=== PATIENT | male | born 1950 | race American Indian/Alaskan Native ===

== ENCOUNTER 2022-06-07 11:24 | Emergency (ER) | payer OTHER ==
[2022-06-07 14:05] LABS: Hematocrit 35.1 % (35.5-45.6); Hemoglobin 10.8 gm/dl (11.8-15.2); Mean Corpuscular HGB Conc 31 % (32-34); Mean Corpuscular Volume 82 fl (84-94); Red Blood Count 4.26 M/mm3 (3.65-5.03)
[2022-06-07 14:07] LABS: Platelet Count 79 K/mm3 (140-440); Red Cell Distribution Width 21.6 % (13.2-15.2)
--- NOTE | 2022-06-07 14:10 | Ultrasound Report ---
ULTRASOUND SCROTUM INDICATION / CLINICAL INFORMATION: swelling. COMPARISON: None available. FINDINGS -- RIGHT: TESTIS: Size = 4.8 x 2.1 x 3.9 cm. - Appearance: No significant abnormality. - Cyst / Mass: None. - Color Doppler Flow: No significant abnormality. EPIDIDYMIS: No significant abnormality. HYDROCELE: None. VARICOCELE: None demonstrated. FINDINGS -- LEFT: TESTIS: Size = 3.7 x 2.0 x 4.3 cm. - Appearance: No significant abnormality. - Cyst / Mass: None. - Color Doppler Flow: No significant abnormality. EPIDIDYMIS: No significant abnormality. HYDROCELE: None. VARICOCELE: None demonstrated. ADDITIONAL FINDINGS: Marked scrotal soft tissue/skin edema/swelling. IMPRESSION: 1. No intratesticular mass or torsion. 2. Marked scrotal soft tissue/skin edema/swelling Signer Name: Farooq Roth DO Signed: 06/07/2022 2:05 PM Workstation Name: [id number]
[2022-06-07 14:26] LABS: Calcium 9.6 mg/dL (8.4-10.2)
--- NOTE | 2022-06-07 14:54 | Emergency Department Report ---
ED General Adult HPI - General Chief complaint: Urogenital-Male Stated complaint: SCROTUM PAIN/SWELLING PUI?: No Time Seen by Provider: 06/07/22 12:40 Source: patient, EMS Mode of arrival: Stretcher Limitations: No Limitations - History of Present Illness Initial comments: SCROTAL SWELLING WITH PAIN. STARTED 2 WEEKS AGO AND SIGNIFICANTLY INCREASED TODAY started 3 weeks ago , no trauma nof ever, not sexually active was in dialysis today , had it before and it went away -: Gradual, week(s) (3) Location: genitals Radiation: non-radiation Severity scale (0 -10): 10 Improves with: none Worsens with: none Associated Symptoms: denies: denies other symptoms, confusion, chest pain, cough, diaphoresis ED Review of Systems ROS: Stated complaint: SCROTUM PAIN/SWELLING Other details as noted in HPI Constitutional: denies: chills, fever Eyes: denies: eye pain, eye discharge, vision change ENT: denies: ear pain, throat pain Respiratory: denies: cough, shortness of breath, wheezing Cardiovascular: denies: chest pain, palpitations Endocrine: no symptoms reported Gastrointestinal: denies: abdominal pain, nausea, diarrhea Genitourinary: denies: urgency, dysuria Musculoskeletal: denies: back pain, joint swelling, arthralgia Skin: denies: rash, lesions Neurological: denies: headache, weakness, paresthesias Psychiatric: denies: anxiety, depression Hematological/Lymphatic: denies: easy bleeding, easy bruising ED Past Medical Hx - Past Medical History Hx Hypertension: Yes Hx Renal Disease: Yes ED Physical Exam - General Limitations: No Limitations General appearance: alert, in no apparent distress - Head Head exam: Present: atraumatic, normocephalic - Eye Eye exam: Present: normal appearance - ENT ENT exam: Present: mucous membranes moist - Neck Neck exam: Present: normal inspection - Respiratory Respiratory exam: Present: normal lung sounds bilaterally. Absent: respiratory distress - Cardiovascular Cardiovascular Exam: Present: regular rate, normal rhythm. Absent: systolic murmur, diastolic murmur, rubs, gallop - GI/Abdominal GI/Abdominal exam: Present: soft, normal bowel sounds - Rectal Rectal exam: Present: deferred - exam: Present: scrotal swelling - Extremities Exam Extremities exam: Present: normal inspection - Back Exam Back exam: Present: normal inspection - Neurological Exam Neurological exam: Present: alert, oriented X3 - Psychiatric Psychiatric exam: Present: normal affect, normal mood - Skin Skin exam: Present: warm, dry, intact, normal color. Absent: rash ED Course Vital Signs 06/07/22 06/07/22 06/07/22 11:25 13:04 13:39 Temperature 97.7 F Pulse Rate 85 63 Respiratory 18 14 16 Rate Blood Pressure 138/80 170/80 [Left] O2 Sat by Pulse 98 94 98 Oximetry ED Medical Decision Making - Lab Data Result diagrams: 06/07/22 13:16 06/07/22 13:16 - Radiology Data Radiology results: report reviewed, image reviewed - Medical Decision Making work up showed CRF chronic, US showed edema no inefection or tosion. Critical care attestation.: If time is entered above; I have spent that time in minutes in the direct care of this critically ill patient, excluding procedure time. ED Disposition Clinical Impression: Scrotal edema, CKD (chronic kidney disease) Disposition: 01 HOME / SELF CARE / HOMELESS Is pt being admited?: No Does the pt Need Aspirin: No Condition: Stable Instructions: Scrotal Swelling Referrals: JORGE DIAS MD [Staff Physician] - 3-5 Days
[2022-06-07 15:05] LABS: Anisocytosis 1+; Basophils % (Manual) 0 % (0.0-1.8); Hypochromasia 1+; Platelet Estimate Consistent w Auto; Target Cells Few; Total Cells Counted 100
[2022-06-07 15:07] VITALS: BP 163/67
== END 2022-06-07 16:20 | disposition home or self-care (01) ==
LOC: ED 11:24
DX: N50.89 Other specified disorders of the male genital organs (principal); I12.9 Hypertensive chronic kidney disease with stage 1 through stage 4 chronic kidney disease, or unspecified chronic kidney disease; N18.9 Chronic kidney disease, unspecified
CPT/HCPCS: 36415; 80048; 85007; 85025; 93975; 99284